=== PATIENT | female | born 1960 | race Caucasian/White ===

== ENCOUNTER 2017-12-10 07:24 | Emergency (ER) | payer BC ==
[~2017-12-10] VITALS: Ht 160 cm; Wt 60.0 kg
[2017-12-10 07:57] LABS: BASOPHILS % (AUTO) 0.4 % (0-1); EOSINOPHILS # (AUTO) 0.2 X10'3 (0-0.9); EOSINOPHILS % (AUTO) 2.9 % (0-6); HEMATOCRIT 41.3 % (35.0-45.0); HEMOGLOBIN 14.2 g/dl (12.0-16.0); LYMPHOCYTES # (AUTO) 2.1 X10'3 (1.1-4.8); LYMPHOCYTES % (AUTO) 30.9 % (21-51); MEAN CORPUSCULAR HEMOGLOBIN 27.6 PG (27.0-31.0); MEAN CORPUSCULAR HGB CONC 34.4 % (33.0-36.5); MEAN CORPUSCULAR VOLUME 80.1 FL (78-98); MEAN PLATELET VOLUME 9.4 FL (7.4-10.4); MONOCYTES # (AUTO) 0.7 X10'3 (0-0.9); MONOCYTES % (AUTO) 10.5 % (2-12); NEUTROPHILS # (AUTO) 3.8 X10'3 (1.8-7.7); NEUTROPHILS % (AUTO) 55.3 % (42-75); PLATELET COUNT 234 X10'3 (140-440); RED BLOOD COUNT 5.16 X10'6 (4.20-5.60); RED CELL DISTRIBUTION WIDTH 13.3 % (11.5-14.5)
[2017-12-10] MEDS ORDERED: morphine 4 MG/ML inj SYRINge IV ONE (08:00)
[2017-12-10] MEDS ORDERED: normal saline 1000ML IV soln IVB ONE (08:00)
[2017-12-10 08:05] LABS: ALANINE AMINOTRANSFERASE 37 U/L (12-78); ALBUMIN 3.8 G/DL (3.4-5.0); ALBUMIN/GLOBULIN RATIO 0.9 (1.1-1.5); ALKALINE PHOSPHATASE 105 IU/L (46-116); ANION GAP 11 (8-16); ASPARTATE AMINO TRANSFERASE 19 U/L (10-37); BILIRUBIN,TOTAL 0.6 MG/DL (0.1-1.0); BLOOD UREA NITROGEN 15 MG/DL (7-18); BUN/CREATININE RATIO 23.8 (6.6-38.0); CALCIUM 9.4 MG/DL (8.5-10.1); CHLORIDE 106 MMOL/L (99-107); CREATININE 0.63 MG/DL (0.40-0.90); GLUCOSE 120 MG/DL (70-104); POTASSIUM 3.9 MMOL/L (3.5-5.1); SODIUM 142 MMOL/L (135-145); TOTAL CARBON DIOXIDE 24.7 MMOL/L (24-32); eGFR > 90 ML/MIN
[2017-12-10 08:12] LABS: LIPASE 75 U/L (73-393)
[2017-12-10 08:13] LABS: INR 0.9 INR; PROTHROMBIN TIME 9.6 SECONDS (9.0-12.0)
[2017-12-10 08:26] LABS: CLARITY,URINE CLEAR (Clear); COLOR,URINE STRAW (Yellow); GLUCOSE, URINE NEGATIVE (Neg); KETONES,URINE NEGATIVE (Neg); LEUKOCYTE ESTERASE ,URINE NEGATIVE (Neg); NITRITES, URINE NEGATIVE (Neg); OCCULT BLOOD,URINE TRACE-INTACT (Neg); PH,URINE 5.5 (4.8-8.0); PROTEIN,URINE NEGATIVE (Neg); UROBILINOGEN,URINE 0.2 E.U/dL (0.2-1.0)
[2017-12-10] MEDS ORDERED: iohexol 300mg/ml 100ml inj. ONE (08:30)
[2017-12-10 08:33] LABS: UA COLLECTION TYPE CLN CATCH MIDSTREAM
[2017-12-10 08:36] LABS: BACTERIA,URINE NONE SEEN /HPF (Neg); MUCUS STRANDS FEW /LPF (Neg); RBC,URINE 0-2 /HPF (0-2); SQUAMOUS EPITHELIAL CELL,UR FEW /LPF (FEW); WBC,URINE NONE SEEN /HPF (0-4)
[2017-12-10 11:11] VITALS: BP 131/75
== END 2017-12-10 11:13 | disposition home or self-care (01) ==
LOC: ER 07:25
DX: R10.9 Unspecified abdominal pain (principal); Z90.89 Acquired absence of other organs; Z98.890 Other specified postprocedural states; Z88.0 Allergy status to penicillin; Z88.2 Allergy status to sulfonamides; Z88.5 Allergy status to narcotic agent; Z88.8 Allergy status to other drugs, medicaments and biological substances
CPT/HCPCS: 36415; 74177; 76856; 80053; 81001; 83690; 85025; 85610; 96360; 99285; J7030; Q9967

== ENCOUNTER 2021-08-04 13:16 | Inpatient (IN) | payer BC ==
[2021-08-04] VITALS (7 sets, daily range): BP systolic 94–124; BP diastolic 60–84
[~2021-08-04] VITALS: Ht 160 cm; Wt 57.0 kg
[2021-08-04] MEDS ORDERED: heparin 10,000 units/1 ML INJ IV ONE ×2 (13:25→13:30)
[2021-08-04] MEDS ORDERED: heparin 10,000 units/1 ML INJ IV PRN (13:25)
[2021-08-04] MEDS: heparin 25,000 UNIT/250ml bag 250 ML IV SCH ×2 (13:37→21:20)
[2021-08-04 13:39] LABS: BASOPHILS % (AUTO) 0.7 % (0-1); EOSINOPHILS # (AUTO) 0.2 X10'3 (0-0.9); EOSINOPHILS % (AUTO) 2.8 % (0-6); HEMATOCRIT 40.1 % (35.0-45.0); HEMOGLOBIN 13.5 g/dl (12.0-16.0); LYMPHOCYTES # (AUTO) 2.4 X10'3 (1.1-4.8); LYMPHOCYTES % (AUTO) 40.6 % (21-51); MEAN CORPUSCULAR HEMOGLOBIN 28.6 PG (27.0-31.0); MEAN CORPUSCULAR HGB CONC 33.8 g/dL (33.0-36.5); MEAN CORPUSCULAR VOLUME 84.7 FL (78-98); MEAN PLATELET VOLUME 9.2 FL (7.4-10.4); MONOCYTES # (AUTO) 0.6 X10'3 (0-0.9); NEUTROPHILS # (AUTO) 2.7 X10'3 (1.8-7.7); NEUTROPHILS % (AUTO) 45.9 % (42-75); PLATELET COUNT 233 X10'3 (140-440); RED BLOOD COUNT 4.73 X10'6 (4.20-5.60); RED CELL DISTRIBUTION WIDTH 14.3 % (11.5-14.5); WHITE BLOOD COUNT 5.9 X10'3 (4.5-11.0)
[2021-08-04 13:51] LABS: PARTIAL THROMBOPLASTIN TIME 28 SECONDS (22-32)
[2021-08-04 13:55] LABS: ALANINE AMINOTRANSFERASE 27 U/L (12-78); ALBUMIN 3.8 G/DL (3.4-5.0); ALBUMIN/GLOBULIN RATIO 0.9 (1.1-1.5); ALKALINE PHOSPHATASE 90 IU/L (46-116); ANION GAP 15 (8-16); ASPARTATE AMINO TRANSFERASE 18 U/L (10-37); BLOOD UREA NITROGEN 18 MG/DL (7-18); BUN/CREATININE RATIO 23.7 (6.6-38.0); CHLORIDE 105 MMOL/L (99-107); CREATININE 0.76 MG/DL (0.40-0.90); GLUCOSE 119 MG/DL (70-104); POTASSIUM 3.7 MMOL/L (3.5-5.1); SODIUM 142 MMOL/L (135-145); TOTAL CARBON DIOXIDE 22.3 MMOL/L (24-32); TOTAL PROTEIN 7.9 G/DL (6.4-8.2); eGFR 78 ML/MIN
[2021-08-04 14:04] LABS: MAGNESIUM 2.3 MG/DL (1.5-2.4)
[2021-08-04] MEDS ORDERED: normal saline 1000ml 1,000 ML IV SCH (14:25)
[2021-08-04] MEDS ORDERED: acetaminophen 325mg tablet PO PRN (14:25)
[2021-08-04] MEDS ORDERED: mag hydrox/Alum hydrox/simeth 30ml oral suspension PO PRN (14:25)
[2021-08-04] MEDS ORDERED: ondansetron/PF 4mg/2ml inj IV PRN (14:25)
[2021-08-04] MEDS ORDERED: magnesium hydroxide 30ml (MOM) UD suspension PO PRN (14:25)
[2021-08-04] MEDS ORDERED: morphine 2 MG/ML inj. syringe IV PRN (14:25)
[2021-08-04] MEDS ORDERED: HYDR-3927 PO (14:36)
[2021-08-04] MEDS ORDERED: METF-900 PO (14:36)
[2021-08-04] MEDS ORDERED: FLUV50TA24 PO (14:36)
[2021-08-04] MEDS ORDERED: FLUT1BLS10 PO (14:36)
[2021-08-04] MEDS ORDERED: ALBU8HFA PO (14:36)
[2021-08-04] MEDS ORDERED: THYR30TA2 PO (14:36)
[2021-08-04] MEDS ORDERED: BENZ-49 PO (14:39)
[2021-08-04] MEDS: morphine 2 MG/ML inj. syringe IV PRN ×2 (17:07→21:08)
[2021-08-04] MEDS ORDERED: metoprolol tartrate 1mg/ml inj IV STA (17:15)
[2021-08-04] MEDS ORDERED: diphenhydrAMINE 50 mg/ml inj IV STA (17:17)
--- NOTE | 2021-08-04 17:29 | NUR ---
Dr. Bloom at bedside,pt going to cathlab for angiogram.
[2021-08-04] MEDS ORDERED: fentaNYL/PF 50MCG/1 ML 2ML syringe ONE (17:33)
[2021-08-04] MEDS ORDERED: nitroGLYCERIN-Tridil 50MG/D5W 250 ML IV ONE (17:33)
[2021-08-04] MEDS ORDERED: midazolam 1 mg/ML 2ml injection ONE (17:33)
[2021-08-04] MEDS ORDERED: iohexol 350MG/ML 100ml bottle IV ONE (17:34)
[2021-08-04] MEDS ORDERED: LIDOcaine 1% (10mg/ml)w/preservative injection 20ml MDV ONE (17:34)
[2021-08-04] MEDS ORDERED: iohexol 350 MG/ML 50ML vial IV ONE (17:34)
[2021-08-04] MEDS ORDERED: heparin 1,000unit/ml 10ml vial 10 ML ONE (17:34)
[2021-08-04] MEDS ORDERED: diphenhydrAMINE 50 mg/ml inj ONE (18:11)
[2021-08-04] MEDS ORDERED: benzonatate 100mg capsule PO PRN (19:00)
[2021-08-04] MEDS ORDERED: sodium chloride 0.45% 1,000 ML IV SCH (19:00)
[2021-08-04] MEDS ORDERED: albuterol 2.5 MG/3 ML nebule NEB PRN (19:05)
[2021-08-04] MEDS ORDERED: nitroGLYCERIN 0.4mg SUBLingual tab SL PRN (19:05)
[2021-08-04] MEDS: budesonide 0.5mg/2ml UD nebule IH SCH ×2 (20:00→21:27)
[2021-08-04] MEDS ORDERED: carVEDilol 3.125mg tablet PO SCH (20:00)
[2021-08-04] MEDS ORDERED: fluvoxamine 25 MG tablet PO SCH (21:00)
--- NOTE | 2021-08-04 21:00 | NUR ---
Patient in room PCU 3009. I have received report from TAL ADDISON and had the opportunity to ask questions and assume patient care.
[2021-08-04] MEDS: carVEDilol 3.125mg tablet PO SCH (21:21)
[2021-08-04] MEDS: ALPRAZolam 0.5mg tablet PO SCH (21:21)
[2021-08-04] MEDS: clopidogrel 75mg tablet PO SCH (21:22)
[2021-08-04] MEDS: docusate sod 100mg capsule PO SCH (21:23)
[2021-08-04] MEDS: lisinopril 2.5mg tablet PO SCH (21:27)
[2021-08-05] VITALS (8 sets, daily range): BP systolic 84–107; BP diastolic 47–64
[2021-08-05 04:10] LABS: BASOPHILS # (AUTO) 0.1 X10'3 (0-0.2); BASOPHILS % (AUTO) 0.8 % (0-1); EOSINOPHILS # (AUTO) 0.2 X10'3 (0-0.9); HEMATOCRIT 35.2 % (35.0-45.0); HEMOGLOBIN 12.2 g/dl (12.0-16.0); LYMPHOCYTES # (AUTO) 2.1 X10'3 (1.1-4.8); LYMPHOCYTES % (AUTO) 27.8 % (21-51); MEAN CORPUSCULAR HEMOGLOBIN 28.8 PG (27.0-31.0); MEAN CORPUSCULAR HGB CONC 34.7 g/dL (33.0-36.5); MEAN PLATELET VOLUME 9.3 FL (7.4-10.4); MONOCYTES # (AUTO) 0.6 X10'3 (0-0.9); MONOCYTES % (AUTO) 7.6 % (2-12); NEUTROPHILS # (AUTO) 4.6 X10'3 (1.8-7.7); NEUTROPHILS % (AUTO) 61.8 % (42-75); PLATELET COUNT 220 X10'3 (140-440); RED BLOOD COUNT 4.24 X10'6 (4.20-5.60); WHITE BLOOD COUNT 7.5 X10'3 (4.5-11.0)
[2021-08-05 04:16] LABS: ALBUMIN 3.1 G/DL (3.4-5.0); ANION GAP 8 (8-16); BLOOD UREA NITROGEN 15 MG/DL (7-18); BUN/CREATININE RATIO 22.4 (6.6-38.0); CALCIUM 8.2 MG/DL (8.5-10.1); CHLORIDE 108 MMOL/L (99-107); CREATININE 0.67 MG/DL (0.40-0.90); GLUCOSE 128 MG/DL (70-104); POTASSIUM 3.6 MMOL/L (3.5-5.1); SODIUM 140 MMOL/L (135-145); eGFR 90 ML/MIN
--- NOTE | 2021-08-05 04:57 | NUR ---
CATHI DOWNING PER PROTOCOL, WILL MONITOR FOR RETENTION. JESSICA RN Addendum: 08/05/21 at 0549 by Huyen Ryan RN WRONG PATIENT-DISREGARD
--- NOTE | 2021-08-05 05:50 | NUR ---
PATIENT HYPOTENSIVE, GAVE 250 ML NURSING FLUID BOLUS-FOR SBP MAP <59 BILATERAL ARMS SBP NOW 92/61, MAP 71-WILL CONTINUE FLUIDS PER PROTOCOL ORDERED. JESSICA ADDISON
--- NOTE | 2021-08-05 06:19 | NUR ---
Problems reprioritized. Patient report given, questions answered & plan of care reviewed with SERINA ADDISON.
[2021-08-05] MEDS ORDERED: glucagon, human recombinant 1mg kit SUBCUT PRN (06:20)
[2021-08-05] MEDS ORDERED: insulin Lispro (HumaLOG) vial - multi-dose SQ SCH (06:20)
[2021-08-05] MEDS ORDERED: dextrose 50%-water 50ml dispensing syringe IV PRN ×2 (06:20)
[2021-08-05] MEDS ORDERED: insulin regular, human U-100 3ml vial - multi-dose SQ SCH (06:20)
[2021-08-05] MEDS ORDERED: dextrose ORAL solution 15 GM/59 ML bottle PO PRN ×2 (06:20)
[2021-08-05] MEDS ORDERED: MESSAGE TO PHARMACY PO ONE (06:20)
[2021-08-05] MEDS ORDERED: atorvastatin 20mg tablet PO SCH (08:00)
[2021-08-05] MEDS ORDERED: aspirin 81mg, enteric-coated 1 TAB TABLET.DR PO SCH (08:00)
[2021-08-05] MEDS ORDERED: thyroid, pork 30mg tablet PO SCH (08:00)
[2021-08-05] MEDS ORDERED: hydrOXYzine 25 MG tablet PO SCH (08:00)
[2021-08-05] MEDS ORDERED: metFORMIN 500mg tablet PO SCH (08:00)
[2021-08-05] MEDS: ALPRAZolam 0.5mg tablet PO SCH (08:07)
[2021-08-05] MEDS: docusate sod 100mg capsule PO SCH (08:07)
[2021-08-05] MEDS: lisinopril 2.5mg tablet PO SCH (08:07)
[2021-08-05] MEDS: clopidogrel 75mg tablet PO SCH (08:07)
[2021-08-05] MEDS: carVEDilol 3.125mg tablet PO SCH (08:07)
[2021-08-05] MEDS: morphine 2 MG/ML inj. syringe IV PRN (09:07)
[2021-08-05 09:20] LABS: HEMOGLOBIN A1C 5.7 % (4.5-6.2)
[2021-08-05] MEDS ORDERED: ASPI-1071 PO (09:32)
[2021-08-05] MEDS ORDERED: ATOR20TA66 PO (09:32)
[2021-08-05] MEDS ORDERED: CLOP75TA34 PO (09:32)
[2021-08-05] MEDS ORDERED: NITR0.4T51 SL (09:32)
[2021-08-05] MEDS ORDERED: COR3.125T PO (09:32)
[2021-08-05] MEDS ORDERED: LISI2.5T14 PO (09:32)
[2021-08-05] MEDS ORDERED: insulin glargine (Lantus) pen - multi-dose SQ SCH (21:00)
[2021-08-06] MEDS ORDERED: thyroid, pork 30mg tablet PO SCH (08:00)
== END 2021-08-05 11:00 | disposition home or self-care (01) | DRG 281 ==
LOC: ER 13:16 → ED HOLD 14:28 → PCU 3S 19:30
PROVIDERS: ADMIT Family Medicine; ATTEND Family Medicine
PROC: 4A023N7 Measurement of Cardiac Sampling and Pressure, Left Heart, Percutaneous Approach (ICD-10-PCS; principal; 2021-08-04)
PROC: B2111ZZ Fluoroscopy of Multiple Coronary Arteries using Low Osmolar Contrast (ICD-10-PCS; 2021-08-04)
PROC: B2151ZZ Fluoroscopy of Left Heart using Low Osmolar Contrast (ICD-10-PCS; 2021-08-04)
DX: I21.4 Non-ST elevation (NSTEMI) myocardial infarction (principal); I51.81 Takotsubo syndrome; E03.9 Hypothyroidism, unspecified; I20.0 Unstable angina; E11.9 Type 2 diabetes mellitus without complications; Z79.02 Long term (current) use of antithrombotics/antiplatelets; Z79.82 Long term (current) use of aspirin; Z79.84 Long term (current) use of oral hypoglycemic drugs; Z82.49 Family history of ischemic heart disease and other diseases of the circulatory system; Z86.16 Personal history of COVID-19; Z88.0 Allergy status to penicillin; Z88.5 Allergy status to narcotic agent; Z88.2 Allergy status to sulfonamides; Z88.8 Allergy status to other drugs, medicaments and biological substances; Z98.51 Tubal ligation status; Z90.81 Acquired absence of spleen; Z79.899 Other long term (current) drug therapy; Z79.890 Hormone replacement therapy
CPT/HCPCS: 36415; 71045; 80048; 80053; 82948; 83036; 83735; 83880; 84484; 85025; 85347; 85610; 85730; 87081; 93005; 93306; 93458; 96365; 99152; 99285; A4620; A6258; C1760; C1769; G0378; J1200; J1644; J1815; J2001; J2250; J2270; J2405; J3010; J3490; J7030; J7626; Q0177; Q9967

== ENCOUNTER 2022-05-10 06:18 | Emergency (ER) | payer BC ==
[~2022-05-10] VITALS: Ht 160 cm; Wt 59.1 kg
[~2022-05-10 06:18] MED LIST: ALBU8HFA PO; ASPI-1071 PO; ATOR20TA66 PO; BENZ-49 PO; CLOP75TA34 PO; COR3.125T PO; FLUT1BLS10 PO; FLUV50TA24 PO; HYDR-3927 PO; LISI2.5T14 PO; METF-900 PO; NITR0.4T51 SL; THYR30TA2 PO
--- NOTE | 2022-05-10 06:30 | NUR ---
SPOKE TO DR ALBA. HE STATES NO HEAD CT AT THIS TIME.
[2022-05-10 07:24] LABS: BASOPHILS % (AUTO) 0.5 % (0-1); EOSINOPHILS # (AUTO) 0.2 X10'3 (0-0.9); EOSINOPHILS % (AUTO) 3.2 % (0-6); HEMATOCRIT 42.3 % (35.0-45.0); HEMOGLOBIN 13.9 g/dl (12.0-16.0); LYMPHOCYTES # (AUTO) 1.8 X10'3 (1.1-4.8); LYMPHOCYTES % (AUTO) 27.8 % (21-51); MEAN CORPUSCULAR HEMOGLOBIN 27.7 PG (27.0-31.0); MEAN CORPUSCULAR HGB CONC 32.8 g/dL (33.0-36.5); MEAN CORPUSCULAR VOLUME 84.5 FL (78-98); MEAN PLATELET VOLUME 8.9 FL (7.4-10.4); MONOCYTES # (AUTO) 0.7 X10'3 (0-0.9); MONOCYTES % (AUTO) 10.2 % (2-12); NEUTROPHILS # (AUTO) 3.9 X10'3 (1.8-7.7); NEUTROPHILS % (AUTO) 58.3 % (42-75); PLATELET COUNT 227 X10'3 (140-440); RED BLOOD COUNT 5.01 X10'6 (4.20-5.60); RED CELL DISTRIBUTION WIDTH 13.8 % (11.5-14.5); WHITE BLOOD COUNT 6.6 X10'3 (4.5-11.0)
[2022-05-10 07:39] LABS: ALANINE AMINOTRANSFERASE 25 U/L (12-78); ALBUMIN/GLOBULIN RATIO 1.1 (1.1-1.5); ALKALINE PHOSPHATASE 94 IU/L (46-116); ANION GAP 12 (8-16); ASPARTATE AMINO TRANSFERASE 19 U/L (10-37); BILIRUBIN,TOTAL 0.8 MG/DL (0.1-1.0); BLOOD UREA NITROGEN 17 MG/DL (7-18); CALCIUM 9.2 MG/DL (8.5-10.1); CHLORIDE 107 MMOL/L (99-107); CREATININE 0.63 MG/DL (0.40-0.90); GLUCOSE 114 MG/DL (70-104); POTASSIUM 3.8 MMOL/L (3.5-5.1); SODIUM 142 MMOL/L (135-145); TOTAL CARBON DIOXIDE 23.3 MMOL/L (24-32); TOTAL PROTEIN 7.7 G/DL (6.4-8.2); eGFR > 90 ML/MIN
[2022-05-10 07:42] VITALS: BP 155/103
== END 2022-05-10 09:17 | disposition home or self-care (01) ==
LOC: ER 06:19
DX: R20.2 Paresthesia of skin (principal); M79.602 Pain in left arm; R53.1 Weakness; E11.9 Type 2 diabetes mellitus without complications; F41.9 Anxiety disorder, unspecified; I51.9 Heart disease, unspecified; E07.9 Disorder of thyroid, unspecified; Z88.0 Allergy status to penicillin; Z88.2 Allergy status to sulfonamides; Z88.5 Allergy status to narcotic agent; Z88.8 Allergy status to other drugs, medicaments and biological substances; Z79.899 Other long term (current) drug therapy; Z79.82 Long term (current) use of aspirin; Z79.84 Long term (current) use of oral hypoglycemic drugs
CPT/HCPCS: 36415; 71045; 80053; 83880; 84484; 85025; 93005; 99285